=== PATIENT | male | born 2005 | race Caucasian/White ===

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

== ENCOUNTER 2024-01-01 21:42 | Emergency (ER) | payer OTHER ==
[~2024-01-01] VITALS: Ht 177.8 cm; Wt 64.1 kg
[2024-01-01 21:48] VITALS: TEMP 98.4
[2024-01-01] MEDS ORDERED: BACT800T5 PO (23:26)
[2024-01-01] MEDS: BACTRIM 160MG/800MG DS TAB PO ONE (23:36)
[2024-01-01 23:51] VITALS: BP 118/68; O2SAT 99
== END 2024-01-01 23:53 | disposition home or self-care (01) ==
LOC: M ED 21:42
DX: T81.31XA Disruption of external operation (surgical) wound, not elsewhere classified, initial encounter (principal); Z88.0 Allergy status to penicillin